=== PATIENT | male | born 1955 | race Caucasian/White ===

== ENCOUNTER 2017-07-08 16:05 | Emergency (ER) | payer MEDICAID ==
[~2017-07-08] VITALS: Ht 180.3 cm; Wt 79.4 kg
[2017-07-08 16:20] LABS: BASO # 0.1 10*3/uL (0.0-0.1); EOS # 0.8 10*3/uL (0.0-0.4); EOS % 7.9 % (1.0-4.0); HEMATOCRIT 45.1 % (42.0-52.0); HEMOGLOBIN 15.5 g/dl (14.0-18.0); LYMPH # 2.4 10*3/uL (1.3-4.4); LYMPH % 24.8 % (27.0-41.0); MEAN CELL VOLUME 92.2 fl (80.0-94.0); MEAN CORPUSCULAR HGB 31.7 pg (27.0-31.0); MEAN CORPUSCULAR HGB CONC 34.4 g/dl (33.0-37.0); MONO # 0.6 10*3/uL (0.1-1.0); MONO % 6.1 % (3.0-9.0); NEUT # 5.7 10*3/uL (2.3-7.9); NEUT % 59.9 % (47.0-73.0); PLATELET COUNT AUTOMATED 220 10*3/uL (130-400); RED BLOOD COUNT 4.89 10*6/uL (4.50-5.90); RED CELL DISTRI WIDTH 13.2 % (0-14.5); WHITE BLOOD COUNT 9.5 10*3/uL (4.8-10.8)
[2017-07-08 16:25] VITALS: BP 121/75
[2017-07-08 16:31] LABS: ACT PARTIAL THROMBO TIME 25.8 SECONDS (20.8-31.5); INTERNATIONAL NORM RATIO 0.9 (2.0-3.5)
[2017-07-08 16:37] LABS: ALBUMIN 3.8 gm/dl (3.1-4.5); BUN 13 mg/dl (7-24); CHLORIDE 105 mmol/L (98-107); CREATININE 1.25 mg/dL (0.70-1.30); POTASSIUM 3.7 mmol/L (3.5-5.1); SGOT/AST 14 IU/L (3-35); SODIUM 138 mmol/L (136-145); TOTAL PROTEIN 7.5 gm/dL (6.4-8.2)
[2017-07-08 16:40] LABS: ALKALINE PHOSPHATASE 70 U/L (45-117); SGPT/ALT 22 U/L (12-78); TROPONIN I < 0.015 ng/ml (<0.045)
[2017-07-08 17:44] VITALS: BP 130/81
[2017-07-08 19:10] VITALS: BP 124/72
[2017-07-20] MEDS ORDERED: TRAZODONE50 MG PO (06:34)
[2017-07-20] MEDS ORDERED: MELADOX NATURAL3 MG PO (06:36)
[2017-07-20] MEDS ORDERED: TOPCARE ALLERGY10 MG PO (06:36)
[2017-07-20] MEDS ORDERED: ASPIR 8181 MG PO (06:36)
[2017-07-20] MEDS ORDERED: ALBUTEROL2.5 MG/0.5 INH (06:37)
[2017-07-20] MEDS ORDERED: SPIRIVA18 MCG PO (06:38)
[2017-07-20] MEDS ORDERED: FLOVENT HFA12 G1 INH (06:39)
== END 2017-07-08 20:02 | disposition left against medical advice (07) ==
LOC: ED 16:05 → EDHOLD 19:17 → 4E 19:35 → EDHOLD 19:35 → 5E 19:44 → 4E 19:44 → 5E 20:00 → ED 20:02 → 4E 20:41 → 4NE 20:41
PROVIDERS: Emergency Medicine
DX: R07.9 Chest pain, unspecified (principal); R51 Headache; R20.2 Paresthesia of skin; R42 Dizziness and giddiness; J44.9 Chronic obstructive pulmonary disease, unspecified; F17.200 Nicotine dependence, unspecified, uncomplicated

== ENCOUNTER → 2017-07-20 | Outpatient (CLI) | payer MEDICAID ==
[~2017-07-20] MED LIST: ALBUTEROL2.5 MG/0.5 INH; ASPIR 8181 MG PO; FLOVENT HFA12 G1 INH; MELADOX NATURAL3 MG PO; SPIRIVA18 MCG PO; TOPCARE ALLERGY10 MG PO; TRAZODONE50 MG PO
--- NOTE | ~2017-07-20 | ST ---
[place], [place] EXERCISE STRESS TEST REPORT NAME: JAVIER ULLOA UNIT #: [id number] ROOM: DOCTOR: THADDEUS SMITH MD BIRTHDATE: [birth year] DOS: 07/20/2017 Lexiscan portion of the Lexiscan Cardiolite. Baseline cardiogram, sinus with nonspecific ST-T changes. Lexiscan, no new EKG changes. No chest pain. Blood pressure and heart rate response was normal. Nuclear images will be reported separately. THADDEUS SMITH MD CM:STRESS:EXERCISE STRESS TEST REPORT [id number] THADDEUS SMITH MD
--- NOTE | 2017-07-20 07:48 | NUR ---
INFORMED CONSENT SIGNED FOR LEXISCAN STRESS TEST WITH DR. SMITH. RESTING EKG NSR, HR 79, BP 122/68. PULSE OX 99% AND LUNGS CLEAR. COMPLETED ONE MINUTE OF LEXISCAN PROTOCOL RECEIVING LEXISCAN 0.4MG OVER 10 SECONDS. NO ARRHYTHMIA OR ST CHANGES NOTED. PT HAD NO C/O. LAST RECOVERY HR 77, BP 116/70. WAITING NUCLEAR SCANNING IN STABLE CONDITION.
== END | disposition home or self-care (01) ==
LOC: CARD 01:36
DX: I25.9 Chronic ischemic heart disease, unspecified (principal)

== ENCOUNTER → 2017-10-27 | Outpatient (CLI) | payer OTHER | END | disposition home or self-care (01) | LOC: US 15:28 | DX: I80.3 Phlebitis and thrombophlebitis of lower extremities, unspecified (principal) ==

== ENCOUNTER → 2017-12-06 | Outpatient (CLI) | payer OTHER ==
[2017-12-06 10:36] LABS: BUN 11 mg/dl (7-24); CREATININE 1.33 mg/dL (0.70-1.30)
== END | disposition home or self-care (01) ==
LOC: CT 11-29 10:00
PROVIDERS: Internal Medicine Critical Care Medicine
DX: J44.9 Chronic obstructive pulmonary disease, unspecified (principal)

== ENCOUNTER → 2018-01-20 | Outpatient (CLI) | payer OTHER ==
[2018-01-20 12:03] LABS: HEMOGLOBIN 15.6 g/dl (14.0-18.0); MEAN CELL VOLUME 91.8 fl (80.0-94.0); MEAN CORPUSCULAR HGB 31.1 pg (27.0-31.0); MEAN CORPUSCULAR HGB CONC 33.9 g/dl (33.0-37.0); MEAN PLATELET VOLUME 10.3 fl (9.6-12.3); RED BLOOD COUNT 5.01 10*6/uL (4.50-5.90); RED CELL DISTRI WIDTH 13.5 % (0-14.5); WHITE BLOOD COUNT 6.3 10*3/uL (4.8-10.8)
[2018-01-20 12:33] LABS: ALBUMIN 3.7 gm/dl (3.1-4.5); ALKALINE PHOSPHATASE 74 U/L (45-117); BUN 9 mg/dl (7-24); CHLORIDE 110 mmol/L (98-107); CHOLESTEROL 169 mg/dL (<200); CREATININE 1.19 mg/dL (0.70-1.30); HDL CHOLESTEROL 47 mg/dl (40-60); LDL CHOLESTEROL 100 mg/dL (9-159); POTASSIUM 3.8 mmol/L (3.5-5.1); SGOT/AST 19 IU/L (3-35); SGPT/ALT 24 U/L (12-78); SODIUM 142 mmol/L (136-145); TOTAL PROTEIN 7.3 gm/dL (6.4-8.2); TRIGLYCERIDES 108 mg/dl (<150); VLDL CHOLESTEROL 22 mg/dL (6-40)
== END | disposition home or self-care (01) ==
LOC: LAB 11:32
PROVIDERS: Registered Nurse Flight
DX: E78.00 Pure hypercholesterolemia, unspecified (principal); J43.1 Panlobular emphysema; M25.431 Effusion, right wrist; Z91.81 History of falling

== ENCOUNTER → 2018-03-04 | Outpatient (CLI) | payer OTHER ==
[2018-03-04 10:47] LABS: BUN 14 mg/dl (7-24); CREATININE 1.33 mg/dL (0.70-1.30)
== END | disposition home or self-care (01) ==
LOC: LAB 10:20 → CT 10:20
PROVIDERS: Internal Medicine Critical Care Medicine
DX: R59.0 Localized enlarged lymph nodes (principal)

== ENCOUNTER → 2018-05-31 | Outpatient (CLI) | payer OTHER ==
[2018-05-31 10:20] LABS: HEMATOCRIT 49.1 % (42.0-52.0); HEMOGLOBIN 16.3 g/dl (14.0-18.0); MEAN CELL VOLUME 93.3 fl (80.0-94.0); MEAN CORPUSCULAR HGB CONC 33.2 g/dl (33.0-37.0); MEAN PLATELET VOLUME 9.9 fl (9.6-12.3); RED BLOOD COUNT 5.26 10*6/uL (4.50-5.90); RED CELL DISTRI WIDTH 13.4 % (0-14.5); WHITE BLOOD COUNT 10.7 10*3/uL (4.8-10.8)
[2018-05-31 10:54] LABS: ALBUMIN 3.6 gm/dl (3.1-4.5); ALKALINE PHOSPHATASE 71 U/L (45-117); BUN 13 mg/dl (7-24); CHLORIDE 107 mmol/L (98-107); CHOLESTEROL 157 mg/dL (<200); CREATININE 1.25 mg/dL (0.70-1.30); HDL CHOLESTEROL 50 mg/dl (40-60); LDL CHOLESTEROL 87 mg/dL (9-159); POTASSIUM 4.4 mmol/L (3.5-5.1); SGOT/AST 21 IU/L (3-35); SGPT/ALT 32 U/L (12-78); SODIUM 142 mmol/L (136-145); TOTAL PROTEIN 7.3 gm/dL (6.4-8.2); TRIGLYCERIDES 99 mg/dl (<150); VLDL CHOLESTEROL 20 mg/dL (6-40)
== END | disposition home or self-care (01) ==
LOC: LAB 10:02
PROVIDERS: Registered Nurse Flight
DX: E78.00 Pure hypercholesterolemia, unspecified (principal); M25.78 Osteophyte, vertebrae; J43.9 Emphysema, unspecified; E55.9 Vitamin D deficiency, unspecified; M54.2 Cervicalgia; R51 Headache

== ENCOUNTER 2018-09-27 22:46 | Emergency (ER) | payer OTHER ==
[~2018-09-27] VITALS: Ht 182.8 cm; Wt 81.6 kg
--- NOTE | ~2018-09-27 | EKG ---
[place], [place] ELECTROCARDIOGRAM REPORT NAME: JAVIER ULLOA UNIT #: [id number] ROOM: DOCTOR: EPIPHANY DRAFT REPORT BIRTHDATE: [birth year] [facility] Test Date: 2018-09-27 Test Time: 23:04:05 Pat Name: JAVIER ULLOA Department: Room: [facility] Gender: M Relief Charge Nurse: Mechelle Quezada : 1955 Requested By: ERILLY NORMAN Order Number: [id number] Reading MD: Rayne Mireles MD Measurements Intervals [place] Rate: 97 P: [place]: QRS: 47 QRSD: 85 T: 34 QT: 335 QTc: 426 Interpretive Statements Atrial fibrillation Baseline wander in lead(s) V2 Electronically Signed On 09-29-2018 13:51:15 PST by Rayne Mireles MD CM:EKGRPT:ELECTROCARDIOGRAM REPORT [id number] REILLY NORMAN EPIPHANY DRAFT REPORT REILLY NORMAN
--- NOTE | ~2018-09-27 | EKG ---
[place], [place] ELECTROCARDIOGRAM REPORT NAME: JAVIER ULLOA UNIT #: [id number] ROOM: DOCTOR: EPIPHANY DRAFT REPORT BIRTHDATE: [birth year] [facility] Test Date: 2018-09-27 Test Time: 22:52:41 Pat Name: JAVIER ULLOA Department: Room: Gender: M [place] Man: : 1955 Requested By: REILLY NORMAN Order Number: [id number] Reading MD: Santi Alex MD Measurements Intervals [place] Rate: 100 P: [place]: QRS: 53 QRSD: 89 T: 33 QT: 344 QTc: 444 Interpretive Statements Atrial flutter with varied AV block, Probable anteroseptal infarct, old Baseline wander in lead(s) V1 No previous ECG available for comparison Electronically Signed On 09-29-2018 9:42:27 PST by Santi Alex MD CM:EKGRPT:ELECTROCARDIOGRAM REPORT [id number] REILLY NORMAN EPIPHANY DRAFT REPORT REILLY NORMAN
[2018-09-27 23:06] LABS: BASO # 0.1 10*3/uL (0.0-0.1); BASO % 1.2 % (0.0-1.0); EOS # 0.6 10*3/uL (0.0-0.4); EOS % 9.7 % (1.0-4.0); HEMATOCRIT 47.7 % (42.0-52.0); HEMOGLOBIN 16.1 g/dl (14.0-18.0); LYMPH # 1.9 10*3/uL (1.3-4.4); LYMPH % 32.7 % (27.0-41.0); MEAN CELL VOLUME 90.9 fl (80.0-94.0); MEAN CORPUSCULAR HGB 30.7 pg (27.0-31.0); MEAN CORPUSCULAR HGB CONC 33.8 g/dl (33.0-37.0); MEAN PLATELET VOLUME 9.8 fl (9.6-12.3); MONO # 0.4 10*3/uL (0.1-1.0); MONO % 6.8 % (3.0-9.0); NEUT # 2.9 10*3/uL (2.3-7.9); NEUT % 49.1 % (47.0-73.0); PLATELET COUNT AUTOMATED 194 10*3/uL (130-400); RED BLOOD COUNT 5.25 10*6/uL (4.50-5.90); RED CELL DISTRI WIDTH 13.9 % (0-14.5); WHITE BLOOD COUNT 5.9 10*3/uL (4.8-10.8)
[2018-09-27] MEDS ORDERED: LIPITOR10 MG PO (23:07)
[2018-09-27] MEDS ORDERED: OMEPRAZOLE D/R20 MG PO (23:08)
[2018-09-27] MEDS ORDERED: VITAMIN D50000 UNIT PO (23:08)
[2018-09-27] MEDS ORDERED: NEURONTIN600 MG PO (23:09)
[2018-09-27 23:10] VITALS: BP 132/66
[2018-09-27] MEDS ORDERED: BREO ELLIPTA 21 EACH INH (23:10)
[2018-09-27 23:19] LABS: ACT PARTIAL THROMBO TIME 24.3 SECONDS (20.8-31.5); INTERNATIONAL NORM RATIO 0.9 (2.0-3.5)
[2018-09-27 23:26] LABS: ALBUMIN 3.3 gm/dl (3.1-4.5); ALKALINE PHOSPHATASE 75 U/L (45-117); BUN 10 mg/dl (7-24); CHLORIDE 105 mmol/L (98-107); CREATININE 1.45 mg/dL (0.70-1.30); POTASSIUM 3.4 mmol/L (3.5-5.1); SGOT/AST 17 IU/L (3-35); SODIUM 140 mmol/L (136-145); TOTAL PROTEIN 7.4 gm/dL (6.4-8.2)
[2018-09-27 23:29] LABS: SGPT/ALT 24 U/L (12-78)
[2018-09-27 23:35] VITALS: BP 118/67
[2018-09-27 23:40] LABS: TROPONIN I < 0.015 ng/ml (<0.045)
== END 2018-09-28 02:56 | disposition home or self-care (01) ==
LOC: ED → EDHOLD 09-28 01:05 → ED 09-28 02:56
PROVIDERS: Nurse Practitioner Family
DX: J44.1 Chronic obstructive pulmonary disease with (acute) exacerbation (principal); R07.1 Chest pain on breathing; I25.2 Old myocardial infarction; F17.200 Nicotine dependence, unspecified, uncomplicated; Z79.899 Other long term (current) drug therapy; Z79.82 Long term (current) use of aspirin

== ENCOUNTER → 2018-12-08 | Outpatient (CLI) | payer OTHER ==
[~2018-12-08] MED LIST changes: +BREO ELLIPTA 21 EACH INH; +LIPITOR10 MG PO; +NEURONTIN600 MG PO; +OMEPRAZOLE D/R20 MG PO; +VITAMIN D50000 UNIT PO
[2018-12-08 14:32] LABS: ALBUMIN 3.4 gm/dl (3.1-4.5); ALKALINE PHOSPHATASE 80 U/L (45-117); BUN 8 mg/dl (7-24); CHLORIDE 107 mmol/L (98-107); CHOLESTEROL 154 mg/dL (<200); CREATININE 1.19 mg/dL (0.70-1.30); HDL CHOLESTEROL 45 mg/dl (40-60); LDL CHOLESTEROL 90 mg/dL (9-159); SGOT/AST 15 IU/L (3-35); SGPT/ALT 20 U/L (12-78); SODIUM 139 mmol/L (136-145); TOTAL PROTEIN 7.1 gm/dL (6.4-8.2); TRIGLYCERIDES 93 mg/dl (<150); VLDL CHOLESTEROL 19 mg/dL (6-40)
== END | disposition home or self-care (01) ==
LOC: LAB 13:36
PROVIDERS: Registered Nurse Flight
DX: M19.072 Primary osteoarthritis, left ankle and foot (principal); E78.00 Pure hypercholesterolemia, unspecified

== ENCOUNTER → 2019-11-09 | Outpatient (CLI) | payer OTHER ==
[2019-11-09 15:48] LABS: HEMATOCRIT 48.5 % (42.0-52.0); HEMOGLOBIN 15.8 g/dl (14.0-18.0); MEAN CELL VOLUME 92.6 fl (80.0-94.0); MEAN CORPUSCULAR HGB 30.2 pg (27.0-31.0); MEAN CORPUSCULAR HGB CONC 32.6 g/dl (33.0-37.0); MEAN PLATELET VOLUME 10.4 fl (9.6-12.3); RED BLOOD COUNT 5.24 10*6/uL (4.50-5.90); RED CELL DISTRI WIDTH 13.8 % (0-14.5); WHITE BLOOD COUNT 6.2 10*3/uL (4.8-10.8)
[2019-11-09 16:16] LABS: ALBUMIN 3.6 gm/dl (3.1-4.5); ALKALINE PHOSPHATASE 85 U/L (45-117); BUN 8 mg/dl (7-24); CHLORIDE 105 mmol/L (98-107); CHOLESTEROL 147 mg/dL (<200); CREATININE 1.25 mg/dL (0.70-1.30); HDL CHOLESTEROL 47 mg/dl (40-60); LDL CHOLESTEROL 73 mg/dL (9-159); POTASSIUM 3.7 mmol/L (3.5-5.1); SGOT/AST 16 IU/L (3-35); SGPT/ALT 21 U/L (12-78); SODIUM 137 mmol/L (136-145); TOTAL PROTEIN 7.4 gm/dL (6.4-8.2); TRIGLYCERIDES 134 mg/dl (<150); VLDL CHOLESTEROL 27 mg/dL (6-40)
[2019-11-10 08:07] LABS: RHEUMATOID ARTHRITIS FACTOR 22.5 IU/mL (0.0-13.9)
== END | disposition home or self-care (01) ==
LOC: LAB 15:04
PROVIDERS: Registered Nurse Flight
DX: L40.50 Arthropathic psoriasis, unspecified (principal); R73.03 Prediabetes; E78.00 Pure hypercholesterolemia, unspecified

== ENCOUNTER → 2020-04-16 | Outpatient (CLI) | payer OTHER | END | disposition home or self-care (01) | LOC: RAD 12:32 | PROVIDERS: ATTEND Registered Nurse Flight | DX: M19.041 Primary osteoarthritis, right hand (principal); M25.741 Osteophyte, right hand ==

== ENCOUNTER → 2021-12-10 | Outpatient (CLI) | payer MEDICARE | END | disposition home or self-care (01) | LOC: MRI 12:28 | PROVIDERS: ATTEND Family Medicine | DX: M47.812 Spondylosis without myelopathy or radiculopathy, cervical region (principal); M43.12 Spondylolisthesis, cervical region; G93.89 Other specified disorders of brain ==

== ENCOUNTER → 2022-06-10 | Outpatient (CLI) | payer MEDICARE | LOC: LAB 09:25 → MRI 11:00 | PROVIDERS: ATTEND Radiology Radiation Oncology | DX: M47.16 Other spondylosis with myelopathy, lumbar region (principal); M48.07 Spinal stenosis, lumbosacral region; M51.37 Other intervertebral disc degeneration, lumbosacral region; G62.9 Polyneuropathy, unspecified; J45.909 Unspecified asthma, uncomplicated; E78.00 Pure hypercholesterolemia, unspecified; M19.90 Unspecified osteoarthritis, unspecified site; G43.909 Migraine, unspecified, not intractable, without status migrainosus; J44.1 Chronic obstructive pulmonary disease with (acute) exacerbation; R26.81 Unsteadiness on feet; R20.0 Anesthesia of skin ==